=== PATIENT | male | born 1980 | race Caucasian/White ===

== ENCOUNTER 2016-11-26 22:42 | Emergency (ER) | payer OTHER ==
[~2016-11-26] VITALS: Ht 177.8 cm; Wt 110.1 kg
[~2016-11-26 22:42] MED LIST: AMBIEN10 MG PO; BUSPAR15 MG PO; BUTALB-APAP-CA1 EACH PO; ERGOCALCIF50000 UNIT PO; ESCITALOPRAM OX10 MG PO; RANITIDINE HCL150 MG PO; ZESTORETIC 20-1 EAC1 PO
[2016-11-26 23:48] LABS: HEMATOCRIT 38.1 % (38.0-50.0); MCH 26.9 PG (29.0-34.0); MCHC 34.6 G/DL (30.0-36.0); MCV 77.6 FL (86-99); MEAN PLAT.VOLUME 8.7 uM^3 (9.0-12.4); PLATELET COUNT 312 K/uL (156-360); RBC DIS.WIDTH-CV 13.3 % (11.8-14.6); RBC DIS.WIDTH-SD 36.5 % (39-53); RED BLOOD COUNT 4.91 M/uL (4.00-5.50); WHITE BLOOD COUNT 10.2 K/uL (4.1-10.2)
[2016-11-26 23:56] LABS: CHLORIDE 101 mEq/L (99-109); POTASSIUM 3.7 mEq/L (3.7-5.4); SODIUM 137 mEq/L (136-147)
[2016-11-26 23:58] LABS: GLUCOSE 101 mg/dL (70-99)
[2016-11-26 23:59] LABS: ANION GAP 11 MEQ/L (2-14)
[2016-11-27 00:01] LABS: SERUM ETHYL ALCOHOL < 10 mg/dL
[2016-11-27 00:02] LABS: GFR ESTIMATE (CALCULATED) > 59 mL/min/
[2016-11-27 00:03] LABS: UREA NITROGEN (BUN) 11 mg/dL (9-23)
[2016-11-27 00:17] LABS: ADD MIUA? NO; BILIRUBIN NEGATIVE; BLOOD NEGATIVE; COLOR YELLOW ((YELLOW)); GLUCOSE (STRIP) NEGATIVE; KETONES NEGATIVE; LEUKOCYTES NEGATIVE; NITRITE NEGATIVE; PROTEIN (STRIP) NEGATIVE; SPECIFIC GRAVITY 1.021 (1.000-1.030); UCUL ADDED? NO; UROBILINOGEN 0.2 MG/DL (0.2-1.0)
[2016-11-27 00:29] LABS: ADD MEDTOX COMMENT Y; AMPHETAMINE NEGATIVE (500 ng/mL); BARBITURATES NEGATIVE (200 ng/mL); BENZODIAZEPINES PRESUMPTIVE POSITIVE (150 ng/mL); COCAINE NEGATIVE (150 ng/mL); INTERNAL CONTROLS VALID? YES; METHADONE NEGATIVE (200 ng/mL); METHAMPHETAMINE NEGATIVE (500 ng/mL); OPIATES (MORPHINE) NEGATIVE (100 ng/mL); OXYCODONE NEGATIVE (100 ng/mL); PHENCYCLIDINE NEGATIVE (25 ng/mL); PROPOXYPHENE NEGATIVE (300 ng/mL); THC CANNABINOIDS NEGATIVE (50 ng/mL); TRICYCLIC ANTIDEPRESSANTS NEGATIVE (300 ng/mL)
[2016-11-27 01:44] VITALS: BP 140/89
[2016-11-27 06:01] LABS: BENZODIAZEPINES QUANT VALUE 0 NG/ML
[2016-11-27 06:02] LABS: BENZODIAZEPINES, URINE SCREEN Negative (200 ng/mL)
== END 2016-11-27 02:01 | disposition home or self-care (01) ==
LOC: EME 22:42
PROVIDERS: Emergency Medicine
DX: F41.9 Anxiety disorder, unspecified (principal); F29 Unspecified psychosis not due to a substance or known physiological condition; S90.112A Contusion of left great toe without damage to nail, initial encounter; W20.8XXA Other cause of strike by thrown, projected or falling object, initial encounter; J45.909 Unspecified asthma, uncomplicated; I10 Essential (primary) hypertension; K21.9 Gastro-esophageal reflux disease without esophagitis; F32.9 Major depressive disorder, single episode, unspecified; Z88.8 Allergy status to other drugs, medicaments and biological substances
CPT/HCPCS: 73630; 80048; 81003; 84999; 85027; 90839; 99281; 99284; G0480

== ENCOUNTER 2016-12-15 22:01 | Emergency (ER) | payer OTHER ==
[~2016-12-15] VITALS: Ht 177.8 cm; Wt 118.8 kg
[2016-12-15] MEDS ORDERED: NAPROSYN500 MG PO (23:56)
[2016-12-15] MEDS ORDERED: FLEXERIL10 MG PO (23:56)
[2016-12-15] MEDS ORDERED: PREDNISONE20 MG PO (23:56)
[2016-12-16 00:43] VITALS: BP 149/95
== END 2016-12-16 00:46 | disposition home or self-care (01) ==
LOC: EME 22:01
DX: M54.42 Lumbago with sciatica, left side (principal); M62.830 Muscle spasm of back; I10 Essential (primary) hypertension; J45.909 Unspecified asthma, uncomplicated; Z88.8 Allergy status to other drugs, medicaments and biological substances
CPT/HCPCS: 99281; 99284; J7512

== ENCOUNTER 2017-01-12 12:42 | Emergency (ER) | payer OTHER ==
[~2017-01-12] VITALS: Ht 177.8 cm; Wt 122.7 kg
[~2017-01-12 12:42] MED LIST changes: +FLEXERIL10 MG PO; +NAPROSYN500 MG PO; +PREDNISONE20 MG PO
[2017-01-12 14:15] LABS: POINT-OF-CARE METER ID UU13113800
[2017-01-12 14:31] LABS: ADD MIUA? NO; BILIRUBIN NEGATIVE; BLOOD NEGATIVE; COLOR YELLOW ((YELLOW)); GLUCOSE (STRIP) NEGATIVE; KETONES NEGATIVE; LEUKOCYTES NEGATIVE; NITRITE NEGATIVE; PROTEIN (STRIP) NEGATIVE; SPECIFIC GRAVITY 1.017 (1.000-1.030); UCUL ADDED? NO; UROBILINOGEN 0.2 MG/DL (0.2-1.0)
[2017-01-12 15:22] VITALS: BP 169/103
== END 2017-01-12 15:22 | disposition home or self-care (01) ==
LOC: EME 12:42
PROVIDERS: Physician Assistant
DX: R30.0 Dysuria (principal)
CPT/HCPCS: 81003; 82948; 99281; 99284

== ENCOUNTER 2017-05-11 12:16 | Emergency (ER) | payer OTHER ==
[~2017-05-11] VITALS: Ht 177.8 cm; Wt 130.0 kg
[2017-05-11 13:52] LABS: ADD MIUA? NO; BILIRUBIN NEGATIVE; BLOOD NEGATIVE; COLOR YELLOW ((YELLOW)); GLUCOSE (STRIP) NEGATIVE; KETONES NEGATIVE; LEUKOCYTES NEGATIVE; NITRITE NEGATIVE; PROTEIN (STRIP) NEGATIVE; SPECIFIC GRAVITY 1.015 (1.000-1.030); UROBILINOGEN 0.2 MG/DL (0.2-1.0)
[2017-05-11 14:12] LABS: HEMATOCRIT 39.1 % (38.0-50.0); MCH 26.9 PG (29.0-34.0); MCHC 34.3 G/DL (30.0-36.0); MCV 78.4 FL (86-99); MEAN PLAT.VOLUME 8.3 uM^3 (9.0-12.4); PLATELET COUNT 265 K/uL (156-360); RBC DIS.WIDTH-SD 36.7 % (39-53); RED BLOOD COUNT 4.99 M/uL (4.00-5.50); WHITE BLOOD COUNT 9.9 K/uL (4.1-10.2)
[2017-05-11 14:26] LABS: CHLORIDE 103 mEq/L (99-109); POTASSIUM 4.1 mEq/L (3.7-5.4); SODIUM 135 mEq/L (136-147)
[2017-05-11 14:28] LABS: GLUCOSE 99 mg/dL (70-99)
[2017-05-11 14:30] LABS: ANION GAP 8 MEQ/L (2-14); TOTAL BILIRUBIN 0.3 mg/dL (0.0-1.0)
[2017-05-11 14:32] LABS: ALKALINE PHOSPHATASE 52 IU/L (3-129); GFR ESTIMATE (CALCULATED) > 59 mL/min/
[2017-05-11 14:33] LABS: UREA NITROGEN (BUN) 12 mg/dL (9-23)
[2017-05-11 14:35] LABS: LIPASE 16 U/L (1.0-51.0)
[2017-05-11] MEDS ORDERED: OMEPRAZOLE40 M1 PO (16:23)
[2017-05-11 16:30] VITALS: BP 160/102
== END 2017-05-11 16:30 | disposition home or self-care (01) ==
LOC: EME 12:16
PROVIDERS: Physician Assistant
DX: R10.30 Lower abdominal pain, unspecified (principal); Z88.8 Allergy status to other drugs, medicaments and biological substances; J45.909 Unspecified asthma, uncomplicated; I10 Essential (primary) hypertension; K21.9 Gastro-esophageal reflux disease without esophagitis
CPT/HCPCS: 71020; 74177; 80053; 81003; 83690; 85027; 86900; 86901; 99281; 99285; J7030

== ENCOUNTER 2017-07-11 20:03 | Emergency (ER) | payer OTHER ==
[~2017-07-11] VITALS: Ht 177.8 cm; Wt 124.3 kg
[~2017-07-11 20:03] MED LIST changes: +OMEPRAZOLE40 M1 PO
[2017-07-11 22:30] VITALS: BP 144/92
== END 2017-07-11 22:30 | disposition home or self-care (01) ==
LOC: EME 20:03
DX: F43.9 Reaction to severe stress, unspecified (principal); F33.9 Major depressive disorder, recurrent, unspecified; F41.0 Panic disorder [episodic paroxysmal anxiety]; I10 Essential (primary) hypertension
CPT/HCPCS: 90839

== ENCOUNTER 2018-02-02 21:25 | Emergency (ER) | payer OTHER ==
[~2018-02-02] VITALS: Ht 177.8 cm; Wt 121.5 kg
[2018-02-02 22:50] LABS: HEMOGLOBIN 14.3 G/DL (12.5-16.6); MCH 28.3 PG (29.0-34.0); MCHC 34.9 G/DL (30.0-36.0); PLATELET COUNT 257 K/uL (156-360); RBC DIS.WIDTH-CV 12.7 % (11.8-14.6); RBC DIS.WIDTH-SD 36.8 % (39-53); RED BLOOD COUNT 5.06 M/uL (4.00-5.50); WHITE BLOOD COUNT 10.5 K/uL (4.1-10.2)
[2018-02-02 23:12] LABS: CHLORIDE 101 mEq/L (99-109); POTASSIUM 3.9 mEq/L (3.7-5.4); SODIUM 138 mEq/L (136-147)
[2018-02-02 23:13] LABS: GLUCOSE 174 mg/dL (70-99)
[2018-02-02 23:17] LABS: CREATININE 0.8 mg/dL (0.6-1.3); GFR ESTIMATE (CALCULATED) > 59 mL/min/ (58.99-99999)
[2018-02-02 23:18] LABS: UREA NITROGEN (BUN) 12 mg/dL (9-23)
[2018-02-02 23:22] LABS: TROP-I INTERPRETATION NEGATIVE; TROPONIN-I < 0.01 ng/mL (0.0-0.30)
[2018-02-03] MEDS ORDERED: NAPROSYN500 MG PO (00:39)
[2018-02-03] MEDS ORDERED: FLEXERIL10 MG PO (00:39)
[2018-02-03 00:45] VITALS: BP 134/65
== END 2018-02-03 00:47 | disposition home or self-care (01) ==
LOC: EME 21:25
PROVIDERS: Physician Assistant
DX: M79.1 Myalgia (principal); R07.89 Other chest pain; H92.02 Otalgia, left ear; I10 Essential (primary) hypertension; F32.9 Major depressive disorder, single episode, unspecified; E78.00 Pure hypercholesterolemia, unspecified
CPT/HCPCS: 71046; 80048; 84484; 85027; 93005; 99281; 99284

== ENCOUNTER 2018-05-18 21:17 | Emergency (ER) | payer OTHER ==
[~2018-05-18] VITALS: Ht 177.8 cm; Wt 133.0 kg
[2018-05-18 22:10] LABS: HEMATOCRIT 36.8 % (38.0-50.0); MCH 28.3 PG (29.0-34.0); MCHC 35.3 G/DL (30.0-36.0); PLATELET COUNT 246 K/uL (156-360); RBC DIS.WIDTH-CV 12.9 % (11.8-14.6); RBC DIS.WIDTH-SD 36.5 % (39-53); WHITE BLOOD COUNT 11.2 K/uL (4.1-10.2)
[2018-05-18 22:14] LABS: APPEARANCE CLEAR ((CLEAR)); BILIRUBIN NEGATIVE; BLOOD MODERATE; COLOR YELLOW ((YELLOW)); GLUCOSE (STRIP) NEGATIVE; KETONES NEGATIVE; LEUKOCYTES NEGATIVE; NITRITE NEGATIVE; PROTEIN (STRIP) 100; SPECIFIC GRAVITY 1.018 (1.000-1.030); UROBILINOGEN 0.2 MG/DL (0.2-1.0)
[2018-05-18 22:27] LABS: ALBUMIN 3.9 g/dL (3.2-4.8); CHLORIDE 100 mEq/L (99-109); POTASSIUM 3.4 mEq/L (3.7-5.4); SODIUM 137 mEq/L (136-147)
[2018-05-18 22:30] LABS: GLUCOSE 136 mg/dL (70-99); TOTAL PROTEIN 7.1 g/dL (6.4-8.3)
[2018-05-18 22:32] LABS: TOTAL BILIRUBIN 0.3 mg/dL (0.0-1.0)
[2018-05-18 22:33] LABS: ALKALINE PHOSPHATASE 75 IU/L (3-129); CREATININE 0.9 mg/dL (0.6-1.3); GFR ESTIMATE (CALCULATED) > 59 mL/min/ (58.99-99999)
[2018-05-18 22:34] LABS: UREA NITROGEN (BUN) 11 mg/dL (9-23)
[2018-05-18 22:35] LABS: AST (GOT) 38 IU/L (2-34)
[2018-05-18 22:36] LABS: ALT (GPT) 69 IU/L (3-49)
[2018-05-18 22:39] LABS: BACTERIA NONE SEEN /HPF; EPITHELIAL CELLS RARE /HPF; MUCUS NONE SEEN /LPF; RED BLOOD CELLS TNTC /HPF (0-5); UCUL ADDED? YES; WHITE BLOOD CELLS 0-5 /HPF (0-5)
[2018-05-18 22:45] LABS: LIPASE 24 U/L (1.0-51.0)
[2018-05-18] MEDS ORDERED: BACTRIM,SEPT1 TABLET PO (23:52)
[2018-05-19 00:11] VITALS: BP 173/90
== END 2018-05-19 00:12 | disposition home or self-care (01) ==
LOC: EXP 21:17 → EME 21:17 → EXP 05-19 00:12
DX: N30.91 Cystitis, unspecified with hematuria (principal); R03.0 Elevated blood-pressure reading, without diagnosis of hypertension; K76.0 Fatty (change of) liver, not elsewhere classified; R16.0 Hepatomegaly, not elsewhere classified; I10 Essential (primary) hypertension; K21.9 Gastro-esophageal reflux disease without esophagitis; J45.909 Unspecified asthma, uncomplicated; E55.9 Vitamin D deficiency, unspecified; E53.8 Deficiency of other specified B group vitamins; G43.909 Migraine, unspecified, not intractable, without status migrainosus; F41.9 Anxiety disorder, unspecified; F32.9 Major depressive disorder, single episode, unspecified; Z88.8 Allergy status to other drugs, medicaments and biological substances
CPT/HCPCS: 74176; 80053; 81003; 83690; 85027; 87086

== ENCOUNTER 2018-06-11 20:02 | Emergency (ER) | payer OTHER ==
[~2018-06-11] VITALS: Ht 177.8 cm; Wt 133.9 kg
[~2018-06-11 20:02] MED LIST changes: +BACTRIM,SEPT1 TABLET PO
[2018-06-11 20:48] LABS: HEMATOCRIT 38.1 % (38.0-50.0); HEMOGLOBIN 13.4 G/DL (12.5-16.6); MCH 27.4 PG (29.0-34.0); MCHC 35.2 G/DL (30.0-36.0); MCV 77.9 FL (86-99); PLATELET COUNT 213 K/uL (156-360); RBC DIS.WIDTH-CV 12.8 % (11.8-14.6); RBC DIS.WIDTH-SD 35.6 % (39-53); RED BLOOD COUNT 4.89 M/uL (4.00-5.50); WHITE BLOOD COUNT 9.2 K/uL (4.1-10.2)
[2018-06-11 20:59] LABS: CHLORIDE 102 mEq/L (99-109); POTASSIUM 3.3 mEq/L (3.7-5.4); SODIUM 138 mEq/L (136-147)
[2018-06-11 21:01] LABS: GLUCOSE 210 mg/dL (70-99)
[2018-06-11 21:04] LABS: CREATININE 0.9 mg/dL (0.6-1.3); GFR ESTIMATE (CALCULATED) > 59 mL/min/ (58.99-99999)
[2018-06-11 21:05] LABS: UREA NITROGEN (BUN) 9 mg/dL (9-23)
[2018-06-11 21:06] LABS: TROP-I INTERPRETATION NEGATIVE; TROPONIN-I < 0.01 ng/mL (0.0-0.30)
[2018-06-11 21:48] LABS: D-DIMER ELISA < 150.00 ng/mLDDU (<230)
[2018-06-12 00:07] LABS: TROP-I INTERPRETATION NEGATIVE; TROPONIN-I < 0.01 ng/mL (0.0-0.30)
[2018-06-12 01:34] VITALS: BP 102/82
== END 2018-06-12 01:37 | disposition home or self-care (01) ==
LOC: EME 20:02
PROVIDERS: Nurse Practitioner Family
DX: R07.9 Chest pain, unspecified (principal); F41.9 Anxiety disorder, unspecified; I10 Essential (primary) hypertension; J45.909 Unspecified asthma, uncomplicated; F32.9 Major depressive disorder, single episode, unspecified; K21.9 Gastro-esophageal reflux disease without esophagitis; E55.9 Vitamin D deficiency, unspecified; Z88.8 Allergy status to other drugs, medicaments and biological substances
CPT/HCPCS: 71046; 80048; 84484; 85027; 85379; 93005; 99281; 99284